=== PATIENT | male | born 1955 | race Caucasian/White ===

== ENCOUNTER 2024-05-01 16:42 | Emergency (ER) | payer BC ==
[2024-05-01] MEDS ORDERED: Acetaminophen 325 MG TAB ONE (17:08)
== END 2024-05-01 17:33 | disposition home or self-care (01) ==
LOC: MADERS 16:42
DX: S93.601A Unspecified sprain of right foot, initial encounter (principal); W19.XXXA Unspecified fall, initial encounter
CPT/HCPCS: 99283

== ENCOUNTER 2024-09-18 10:38 | Emergency (ER) | payer BC, MEDICARE ==
[2024-09-18 11:10] LABS: #Basophils 0.1 thou/uL (0.0-0.2); #Eosinophils 0.2 thou/uL (0.0-0.7); #Lymphocytes 2.1 thou/uL (1.20-3.40); #Monocytes 0.6 thou/uL (0.11-0.59); #Neutrophils 6.1 thou/uL (1.40-6.50); %Basophils 1.2 % (0.0-1.0); %Eosinophils 2.4 % (0.0-10.0); %Lymphocytes 22.7 % (21.0-51.0); %Monocytes 6.8 % (0.0-10.0); %Neutrophils 66.9 % (42.0-75.0); Hematocrit 46.6 % (42.0-52.0); Hemoglobin 14.7 g/dL (14.0-18.0); Mean Corpuscular Hemoglobin 27.4 pg (27.0-31.0); Mean Corpuscular Volume 86.6 fl (78.0-98.0); Platelet Count 268 10x3/uL (130-400); Red Blood Cell (RBC) Count 5.38 mill/uL (4.70-6.10); White Blood Cell (WBC) Count 9.2 10x3/uL (4.8-10.8)
[2024-09-18 11:24] LABS: ALT (SGPT) 18 U/L (Less than 45); AST (SGOT) 18 U/L (11-34); Albumin 3.6 g/dL (3.1-4.5); Alkaline Phosphatase 98 U/L (40-110); Anion Gap 16 mmol/L (10-20); BUN (Urea Nitrogen) 11 mg/dL (8.4-25.7); Bilirubin, Total 0.4 mg/dL (0.3-1.2); Calc. Creatinine Clearance 0 mL/min (70-130); Calcium 9.0 mg/dL (7.8-10.44); Carbon Dioxide 24 mmol/L (23-31); Chloride 105 mmol/L (98-107); Globulin 3.1 g/dL (2.4-3.5); Glucose 106 mg/dL (80-115); Magnesium 1.9 mg/dL (1.6-2.6); Potassium 4.1 mmol/L (3.5-5.1); Sodium 141 mmol/L (136-145)
[2024-09-18 11:25] LABS: Troponin I 0.017 ng/mL (< 0.028)
[2024-09-18 11:44] LABS: Bicarbonate (HCO3v) 28.4 mmol/L (22.0-28.0); CO2 Tension (PvCO2) 46.4 mmHg (42.0-51.0); Calcium, Ionized 1.23 mmol/L (1.15-1.33); Chloride 106 mmol/L (98-107); Hemoglobin - Calc 16.3 g/dL (14.0-18.0); Potassium 4.0 mmol/L (3.5-5.1); Sodium 141 mmol/L (138-145); T. Carbon Dioxide 29.8 mmol/L (22.0-28.0); vO2 Saturation-calc 83.7 % (60.0-85.0)
[2024-09-18 11:48] LABS: Cocaine Metabolite Screen Negative (Negative); THC/Cannabinoid Screen Negative (Negative); Tricyclic Screen Negative (Negative)
== END 2024-09-18 13:45 | disposition short-term general hospital (02) ==
LOC: MADERS 10:38
DX: I61.4 Nontraumatic intracerebral hemorrhage in cerebellum (principal); G45.9 Transient cerebral ischemic attack, unspecified; R06.02 Shortness of breath; R00.8 Other abnormalities of heart beat; I10 Essential (primary) hypertension; E78.5 Hyperlipidemia, unspecified; E66.9 Obesity, unspecified; Z87.891 Personal history of nicotine dependence; Z79.899 Other long term (current) drug therapy; Z79.82 Long term (current) use of aspirin; Z79.51 Long term (current) use of inhaled steroids
CPT/HCPCS: 36416; 70450; 71045; 80053; 80306; 82330; 82435; 82803; 83735; 83880; 84132; 84295; 84484; 85014; 85025; 93005; 36415-59